=== PATIENT | female | born 2000 | race Hispanic/Latino ===

== ENCOUNTER 2020-11-29 00:27 | Emergency (ER) | payer OTHER ==
[2020-11-29] MEDS ORDERED: AZITHROMYCIN 250 MG TAB ONE (02:39)
[2020-11-29] MEDS ORDERED: ALBUTEROL 2.5 MG/3 ML NEB SOL ONE (02:40)
[2020-11-29 03:21] LABS: SARS-COV-2 RT PCR NEGATIVE (NEGATIVE)
--- NOTE | 2020-11-29 03:41 | EDPHYS ---
Physician Documentation [facility] Name: Lori Pearson Age: 20 yrs Sex: Female : 2000 Arrival Date: 11/29/2020 Time: 00:33 Bed 16 Private MD: ED Physician Eulalio Owens HPI: 11/29 02:35 This 20 yrs old Female presents to ER via Ambulatory with complaints of ma2 Breathing Difficulty. 02:35 The patient has shortness of breath during heavy activity. Onset: The symptoms/episode ma2 began/occurred gradually, 3 day(s) ago. Associated signs and symptoms: Pertinent negatives: productive cough, fever, hemoptysis, nausea. Severity of symptoms: At their worst the symptoms were mild in the emergency department the symptoms are unchanged. The patient has experienced similar episodes in the past. 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 - Social history:: Smoking status: Patient denies any tobacco usage or history of. Patient uses alcohol, occasionally. - Family history:: not pertinent. ROS: 02:35 Constitutional: Negative for fever, chills, and weight loss, Eyes: Negative for injury, ma2 pain, redness, and discharge, ENT: Negative for injury, pain, and discharge, Neck: Negative for injury, pain, and swelling, Cardiovascular: Negative for chest pain, palpitations, and edema, Respiratory: Negative for shortness of breath, cough, wheezing, and pleuritic chest pain, Abdomen/GI: Negative for abdominal pain, nausea, diarrhea, and constipation, Back: Negative for injury and pain, : Negative for injury, bleeding, discharge, and swelling, Skin: Negative for injury, rash, and discoloration, Neuro: Negative for headache, weakness, numbness, tingling, and seizure, Psych: Negative for depression, anxiety, suicide ideation, homicidal ideation, and hallucinations, Allergy/Immunology: Negative for hives, rash, and allergies, Endocrine: Negative for neck swelling, polydipsia, polyuria, polyphagia, and marked weight changes. Exam: 02:35 Constitutional: This is a well developed, well nourished patient who is awake, alert, ma2 and in no acute distress. Head/Face: Normocephalic, atraumatic. Eyes: Pupils equal round and reactive to light, extra-ocular motions intact. Lids and lashes normal. Conjunctiva and sclera are non-icteric and not injected. Cornea within normal limits. Periorbital areas with no swelling, redness, or edema. ENT: red oropharynx, otherwise Nares patent. No nasal discharge, no septal abnormalities noted. Tympanic membranes are normal and external auditory canals are clear. Oropharynx with no swelling, or masses, exudates, or evidence of obstruction, uvula midline. Mucous membranes moist. Neck: Trachea midline, no thyromegaly or masses palpated, and no cervical lymphadenopathy. Supple, full range of motion without nuchal rigidity, or vertebral point tenderness. No Meningismus. Chest/axilla: Normal chest wall appearance and motion. Nontender with no deformity. No lesions are appreciated. Cardiovascular: Regular rate and rhythm with a normal S1 and S2. No gallops, murmurs, or rubs. Normal PMI, no JVD. No pulse deficits. Respiratory: Lungs have equal breath sounds bilaterally, clear to auscultation and percussion. No rales, rhonchi or wheezes noted. No increased work of breathing, no retractions or nasal flaring. Abdomen/GI: Soft, non-tender, with normal bowel sounds. No distension or tympany. No guarding or rebound. No evidence of tenderness throughout. Skin: Warm, dry with normal turgor. Normal color with no rashes, no lesions, and no evidence of cellulitis. MS/ Extremity: Pulses equal, no cyanosis. Neurovascular intact. Full, normal range of motion. Vital Signs: 00:49 BP 117 / 89 RA Sitting (auto/reg); Pulse 80; Resp 18; Temp 98.5(O); Pulse Ox 97% on sj1 R/A; Weight 86.18 kg (R); Height 4 ft. 11 in. (149.86 cm) (R); Pain 0/10; 02:10 BP 103 / 73; Pulse 74; Resp 29; Temp 97.8; Pulse Ox 100% on R/A; Pain 0/10; kc4 04:02 BP 104 / 72; Pulse 70; Resp 20; Temp 98.8; Pulse Ox 99% on R/A; Pain 0/10; kc4 00:49 Body Mass Index 38.37 (86.18 kg, 149.86 cm) sj1 MDM: 01:48 Patient medically screened. ma2 02:35 Differential diagnosis: Anxiety Reaction asthma, Bronchitis reactive airway disease. ma2 Data reviewed: vital signs, nurses notes. 03:40 Counseling: I had a detailed discussion with the patient and/or guardian regarding: the ma2 historical points, exam findings, and any diagnostic results supporting the discharge/admit diagnosis, the presence of at least one elevated blood pressure reading (>120/80) during this emergency department visit, the need for outpatient follow up. 11/29 03:21 Order name: COVID-19/FLU A+B; Complete Time: 03:39 EDMS Administered Medications: 02:25 Drug: Albuterol 1.25 mg Route: Inhalation; kc4 04:05 Follow up: Response: No adverse reaction kc4 02:25 Drug: Zithromax (azithromycin) 500 mg Route: PO; kc4 04:05 Follow up: Response: No adverse reaction kc4 Disposition Summary: 11/29/20 03:40 Discharge Ordered Location: Home ma2 Condition: Stable ma2 Diagnosis - Acute bronchitis, unspecified ma2 Followup: ma2 - With: Private Physician - When: Tomorrow - Reason: If symptoms return Discharge Instructions: - Discharge Summary Sheet ma2 - Acute Bronchitis, Adult ma2 Forms: - Medication Reconciliation Form ma2 - Thank You Letter ma2 - Antibiotic Education ma2 - Prescription Opioid Use ma2 - Work release form kc4 Prescriptions: - Zithromax Z-Wes 250 mg Oral Tablet - take 1 tablet by ORAL route as directed for 5 days Day 1 - take two (2) tablets ma2 one time. Day 2, 3, 4 , 5 take one (1) tablet once daily.; 6 tablet; Refills: 0, Product Selection Permitted - Medrol (Wes) 4 mg Oral Tablets, Dose Pack - take 1 tablet by ORAL route as directed - follow package instructions; 1 ma2 packet; Refills: 0, Product Selection Permitted Signatures: Dispatcher [employer] EDMS Eulalio Owens MD MD ma2 La Leija kc4 Rafia Aguilera, RN RN sj1 Corrections: (The following items were deleted from the chart) 02:12 CORONAVIRUS+MR.LAB.BRZ ordered. EDMS EDMS 02:12 Influenza Screen (A \T\ B)+BA.LAB.BRSiri ordered. EDMS EDMS
--- NOTE | 2020-11-29 03:41 | ER ---
Nurse's Notes [facility] Name: Lori Pearson Age: 20 yrs Sex: Female : 2000 Arrival Date: 11/29/2020 Time: 00:33 Bed 16 Private MD: Diagnosis: Acute bronchitis, unspecified Presentation: 11/29 00:49 Chief complaint: Patient states: congestion x 2 days, sob x 1 day. prod cough with sj1 clear sputum. hx of asthma. vax x 1 dose (pfizer). Coronavirus screen: Vaccine status: Patient reports receiving the 1st dose of the Covid vaccine. Date October 19, 2020. Ebola Screen: Patient negative for fever greater than or equal to 101.5 degrees Fahrenheit, and additional compatible Ebola Virus Disease symptoms Patient denies exposure to infectious person. Patient denies travel to an Ebola-affected area in the 21 days before illness onset. Initial Sepsis Screen: Does the patient meet any 2 criteria? No. Patient's initial sepsis screen is negative. Does the patient have a suspected source of infection? No. Patient's initial sepsis screen is negative. Risk Assessment: Do you want to hurt yourself or someone else? Patient reports no desire to harm self or others. Onset of symptoms was November 27, 2020. 00:49 Method Of Arrival: Ambulatory [facility] 00:49 Acuity: KATHLEEN 3 sj1 Triage Assessment: 00:52 General: Appears in no apparent distress. Behavior is calm, cooperative, appropriate sj1 for age. Pain: Denies pain. EENT: Reports nasal congestion since x 2 days. Neuro: No deficits noted. Cardiovascular: No deficits noted. Respiratory: Reports shortness of breath at rest cough that is productive, Onset: The symptoms/episode began/occurred yesterday, the patient has mild shortness of breath. GI: No deficits noted. : No deficits noted. Derm: No deficits noted. Musculoskeletal: No deficits noted. 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 - Social history:: Smoking status: Patient denies any tobacco usage or history of. Patient uses alcohol, occasionally. - Family history:: not pertinent. Screenin:55 Abuse screen: Denies threats or abuse. Denies injuries from another. Nutritional sj1 screening: No deficits noted. Tuberculosis screening: No symptoms or risk factors identified. Fall Risk None identified. Assessment: 00:56 Respiratory: Airway is patent Respiratory effort is even, unlabored. sj1 02:07 Reassessment: Patient appears in no apparent distress at this time. Patient is alert, kc4 oriented x 3, equal unlabored respirations, skin warm/dry/pink. Patient denies pain at this time. General: Appears in no apparent distress. well nourished, Behavior is calm, cooperative, appropriate for age. Pain: Denies pain. Neuro: No deficits noted. Cardiovascular: No deficits noted. Cardiovascular:. Respiratory: Reports shortness of breath cough that is non-productive, Airway is patent Respiratory effort is even, unlabored, Breath sounds are clear bilaterally. GI: No deficits noted. : No deficits noted. EENT: No deficits noted. Derm: No deficits noted. Musculoskeletal: No deficits noted. 04:04 Cardiovascular: No deficits noted. kc4 04:04 Cardiovascular: Rhythm is regular. kc4 Vital Signs: 00:49 BP 117 / 89 RA Sitting (auto/reg); Pulse 80; Resp 18; Temp 98.5(O); Pulse Ox 97% on sj1 R/A; Weight 86.18 kg (R); Height 4 ft. 11 in. (149.86 cm) (R); Pain 0/10; 02:10 BP 103 / 73; Pulse 74; Resp 29; Temp 97.8; Pulse Ox 100% on R/A; Pain 0/10; kc4 04:02 BP 104 / 72; Pulse 70; Resp 20; Temp 98.8; Pulse Ox 99% on R/A; Pain 0/10; kc4 00:49 Body Mass Index 38.37 (86.18 kg, 149.86 cm) 1 ED Course: 00:33 Patient arrived in ED. wm 00:52 Triage completed. sj1 00:52 Arm band placed on right wrist. sj1 00:55 Patient has correct armband on for positive identification. sj1 01:46 La Leija is Primary Nurse. kc4 01:48 Eulalio Owens MD is Attending Physician. [facility] 04:03 No provider procedures requiring assistance completed. Patient did not have IV access kc4 during this emergency room visit. Administered Medications: 02:25 Drug: Albuterol 1.25 mg Route: Inhalation; kc4 04:05 Follow up: Response: No adverse reaction kc4 02:25 Drug: Zithromax (azithromycin) 500 mg Route: PO; kc4 04:05 Follow up: Response: No adverse reaction 4 Outcome: 03:40 Discharge ordered by . ma2 04:04 Discharged to home ambulatory, with family. kc4 04:04 Condition: stable 04:04 Discharge instructions given to patient, family, Instructed on discharge instructions, follow up and referral plans. Demonstrated understanding of instructions, follow-up care, medications, Prescriptions given X 2. 04:06 Patient left the ED. kc4 Signatures: Eulalio Owens MD MD [facility] Melinda Raphael Kourtney kc4 Rafia Agiulera RN RN sj1 Corrections: (The following items were deleted from the chart) 02:41 02:25 Influenza Screen (A \T\ B)+BA.LAB.BRZ drawn and sent. 4 EDMS 02:41 02:25 CORONAVIRUS+MR.LAB.BRZ drawn and sent. 4 EDMS
[2020-11-29 04:15] VITALS: BP 104/72; TEMP 98.8; O2SAT 99
== END 2020-11-29 04:06 | disposition home or self-care (01) ==
LOC: ER 00:27
DX: J20.9 Acute bronchitis, unspecified (principal); Z20.822 Contact with and (suspected) exposure to COVID-19
CPT/HCPCS: 0240U; 99284